=== PATIENT | male | born 1985 | race Caucasian/White ===

== ENCOUNTER 2024-06-04 18:01 | Emergency (ER) | payer OTHER, SELFPAY ==
[2024-06-04] VITALS (21 sets, daily range): BP systolic 118–178; BP diastolic 89–125
--- NOTE | 2024-06-04 18:16 | ED.GENMED ---
History of Present Illness
<Afia Reyes PA-C - Last Filed: 06/04/24 22:08>
General
Chief Complaint: Musculo-Skeletal Complaint
Source: patient
Exam Limitations: none
Time Seen by Provider: 06/04/24 18:14
Nursing documentation reviewed up to this point in time: agreed with
History of Present Illness
History of Present Illness:
38-year-old male presents emergency department today with left ankle pain following a fall. 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
subsequently slipped and grabbed onto the handrail, hopping over a few steps and landing on his left ankle. Patient states that he did not fall down the step or hit his head. He does not recall if he twisted his ankle or had an inversion injury.
Patient denies any neck pain, any headache, any chest wall pain, any abdominal pain. Patient denies any left ankle paresthesias.
Review of Systems
<Afia Reyes PA-C - Last Filed: 06/04/24 22:08>
Review of Systems
All Other Systems: ROS reviewed and negative except as documented in HPI and ROS
Phy Exam
<Afia Reyes PA-C - Last Filed: 06/04/24 22:08>
Physical Exam
Physical Exam:
General: Patient is well appearing and in no acute distress; non-toxic
Skin: Warm and dry, no rashes or lesions
Head: Normocephalic, atraumatic
Eyes: Sclera non-icteric. EOMs intact.
Cardiac: Regular rate
Peripheral Vascular:
Pulm: Normal respiratory effort
Abdomen: No abdominal tenderness
Musculoskeletal:
Neuro: CN II-XII intact, no focal neurologic deficits.
Psychiatric: Appropriate mood and affect.
Course
<Afia Reyes PA-C - Last Filed: 06/04/24 22:08>
Orders/Labs/Results
Orders:
Orders
06/04/24 18:15
HYDROmorphone [Dilaudid] 0.5 mg IV NOW STA
06/04/24 18:45
CR Ankle - Left 2 Views Urgent
Comment:
Reason For Exam: left ankle pain/deformity
06/04/24 18:47
Fentanyl Citrate/Pf [Sublimaze] 100 mcg IV NOW STA
06/04/24 19:25
CR Ankle - Left 2 Views Urgent
Comment:
Reason For Exam: post reduction
06/04/24 19:37
Propofol [Diprivan] 20 ml .ROUTE .STK-MED
06/04/24 20:29
Propofol [Diprivan] 20 ml .ROUTE .STK-MED
06/04/24 20:52
CR Ankle - Left 2 Views Urgent
Comment:
Reason For Exam: post reduction
06/04/24 21:42
Oxycodone/Acetaminophen [Percocet 5/325] 1 tablet PO NOW STA
Vital Signs
Initial and Last Documented VS:
Initial Vital Signs
Temp Pulse Resp Pulse Ox
97.9 F 100 16 98
06/04/24 18:03 06/04/24 18:03 06/04/24 18:03 06/04/24 18:03
Last Documented Vital Signs
Temp Pulse Resp BP Pulse Ox
98.0 F 95 16 177/108 98
06/04/24 21:29 06/04/24 21:45 06/04/24 21:45 06/04/24 21:30 06/04/24 21:30
<Rober Vyas MD - Last Filed: 06/04/24 22:02>
Orders/Labs/Results
Orders:
Orders
06/04/24 18:15
HYDROmorphone [Dilaudid] 0.5 mg IV NOW STA
06/04/24 18:45
CR Ankle - Left 2 Views Urgent
Comment:
Reason For Exam: left ankle pain/deformity
06/04/24 18:47
Fentanyl Citrate/Pf [Sublimaze] 100 mcg IV NOW STA
06/04/24 19:25
CR Ankle - Left 2 Views Urgent
Comment:
Reason For Exam: post reduction
06/04/24 19:37
Propofol [Diprivan] 20 ml .ROUTE .STK-MED
06/04/24 20:29
Propofol [Diprivan] 20 ml .ROUTE .STK-MED
06/04/24 20:52
CR Ankle - Left 2 Views Urgent
Comment:
Reason For Exam: post reduction
06/04/24 21:42
Oxycodone/Acetaminophen [Percocet 5/325] 1 tablet PO NOW STA
Vital Signs
Initial and Last Documented VS:
Initial Vital Signs
Temp Pulse Resp Pulse Ox
97.9 F 100 16 98
06/04/24 18:03 06/04/24 18:03 06/04/24 18:03 06/04/24 18:03
Last Documented Vital Signs
Temp Pulse Resp BP Pulse Ox
98.0 F 95 16 177/108 98
06/04/24 21:29 06/04/24 21:45 06/04/24 21:45 06/04/24 21:30 06/04/24 21:30
Procedures
[place];Afia Reyes PA-C - Last Filed: 06/04/24 22:08>
Moderate Sedation
Chart and allergies reviewed: Yes
Consent for anesthesia obtained: Yes
Time out completed (validating right patient & procedure): Yes
Moderate Sedation Start Time(when first medication is given): 20:47
History of difficult intubation: No
Airway free of obstruction: Yes
Patient has a gag reflex: Yes
Patient is able to open mouth: Yes
Patient has no dentures: Yes
Patient has no loose teeth: Yes
Medication administered by Provider during Moderate Sedation: IV Propofol (mg) (130)
Total dose administered: 130
Time drug administered: 20:47
Moderate Sedation Procedure End Time: 20:59
Comment: attempt unsuccessful, second conscious sedation attempt performed by ortho
Joint/Fracture Reduction
Left Ankle:
Indication for procedure:: acute fracture and dislocation
Procedure completed by: Dr. Vyas
Consent form signed: Yes
Anesthesia/sedation: 1% Lidocaine w/ Epi
Injury was: closed
Post reduction exam: stable
Capillary Refill: normal
Normal distal neurovascular exam?: Yes
<Afia Reyes PA-C - Last Filed: 06/04/24 22:08>
MDM/Problems Addressed
Differential Diagnosis Includes:
See below
MDM/Problems Addressed:
NUMBER AND COMPLEXITY OF PROBLEMS ADDRESSED AT THE ENCOUNTER
� Chronic conditions affecting care: PTSD
� Differential Diagnosis includes: Trimalleolar fracture, distal fibula fracture, ankle sprain, ankle dislocation
AMOUNT AND/OR COMPLEXITY OF DATA TO BE REVIEWED AND ANALYZED
� I performed an independent evaluation of and my interpretation is:
X-rays: Initial x-ray reveals trimalleolar fracture with posterior dislocation of the talus
Other:
� Review of other/old records: No previous ER physician documentation to review
RISK OF COMPLICATIONS AND/OR MORBIDITY OR MORTALITY OF PATIENT MANAGEMENT
� Discussion with other providers: ER attending
� Escalation of care including admission/observation vs risk of discharge considered:
38-year-old male presents emergency department today with concerns of left ankle pain following a slip and fall. Patient endured an x-ray which feels a trimalleolar fracture. Patient's pain was treated with fentanyl and Dilaudid here in the
emergency department. There is dislocation noted on x-ray. First we attempted reduction with a hematoma block. This was unsuccessful. We then sedated patient with conscious sedation with propofol, and multiple providers including myself
attempted reduction, this was again unsuccessful. Orthopedist on-call made aware, reports emergency department to perform procedure. Procedural sedation again was performed with successful reduction. Patient placed in fiberglass splint, return
precautions discussed, patient will follow-up with orthopedist next week. Patient stable for discharge.
<Afia Reyes PA-C - Last Filed: 06/04/24 22:08>
*Critical Care Note
Total Time (30-74mins, 75-104mins- exclusive of procedures): Not Applicable
ED Attending Note
<Afia Reyse PA-C - Last Filed: 06/04/24 22:08>
-
Portions of this chart may have been created with voice recognition software.� Occasional wrong word or��sound alike� substitutions may have occurred due to the inherent limitations of voice recognition software.
<Rober Vyas MD - Last Filed: 06/04/24 22:02>
ED Attending Note
Patient seen and examined by attending physician: Yes
ED Attending Note:
Patient presents to ED secondary to left ankle injury when he lost balance and fell down the steps at home this afternoon. Patient denies any other injuries from the fall. Patient presents with obvious deformity to his left ankle. Patient was
given fentanyl and brought to the hospital by paramedics with mild relief in pain.
Physical Exam
General: moderate painful distress, not acutely ill. afebrile
Head: nc/at. eomi
Neck: supple. no meningeal signs.
Neuro: alert and oriented. no focal neurological deficits
Skin: no rash
Psychiatric: well kept. interactive and cooperative
Extremities: left ankle with obvious deformity with tenderness to palpation. dorsalis pedis pulse palpable.
History, exam, and x-ray consistent with significant comminuted ankle fracture along with dislocation.
After receiving procedural consent, hematoma block initially applied and reduction attempted, without success. Second reduction attempt made after conscious sedation via propofol, once again without success.
Patient evaluated in ED by Dr. Alvarez, orthopedic surgery. After conscious sedation via propofol, ankle dislocation successfully reduced at bedside. Splint applied afterwards.
Post reduction confirmed successful reduction. Pt already has crutches at home, which he will utilize, along with outpatient f/u with . Pt otherwise is neurovascularly intact at time of discharge.
Discharge Plan
Departure
Patient Disposition: Home (Routine Discharge)
Date of Disposition: 06/04/24
Time of Disposition: 21:55
Patient with high blood pressure during this ER visit?: Yes
Condition: Good
Discharge Problem:
Ankle dislocation, Closed trimalleolar fracture
Instructions: Ankle fracture, How to Use Crutches, BLOOD PRESSURE
Prescriptions:
New
oxycodone-acetaminophen [Percocet] 5-325 mg Tablet
1 tab PO Q6HPRN PRN (Reason: pain) Qty: 12 0RF
Referrals:
Delfin Alvarez MD [Active] - Call in 1-3 days for appt
NONE,* [Family Provider] -
Activity Restrictions/Additional Instructions:
For pain and to help decrease inflammation, you can take ibuprofen 400 mg every 4 hours. You have breakthrough pain, you can take 1 Percocet tablet every 6 hours as needed. Please call Dr. Alvarez's office tomorrow to schedule an appointment.
Please keep the splint dry.
PLEASE RETURN TO EMERGENCY DEPARTMENT SHOULD YOU EXPERIENCE LOSS OF SENSATION IN YOUR LOWER EXTREMITY, INTRACTABLE PAIN, NUMBNESS OR TINGLING, ANY OTHER SIGNS OR SYMPTOMS, WORRISOME TO YOU
Interventions
Interventions:
*Risk Screen - Suicide Last Done: 06/04/24 18:03
*General Assessment Last Done: 06/04/24 18:03
*Neglect/Abuse Screening Last Done: 06/04/24 18:03
*ED COVID-19 Vaccine History Last Done: 06/04/24 18:03
ED-Musculoskeletal Assessment Last Done: 06/04/24 18:12
Discharge Date and Time
Print Language: RWANDAN
[2024-06-04] MEDS: DILAUDID 0.5 MG IV (18:18)
[2024-06-04] MEDS: SUBLIMAZE 100 MCG IV (18:51)
--- NOTE | 2024-06-04 21:05 | CON.ORTHO ---
Consultation
-
Date/Time Consultation Requested: [id number] 20:01
Date/Time Consultation Performed: [id number] 20:42
Requesting Provider: MD Asael
Performing Provider: Delfin Alvarez MD
Reason for Consultation: left ankle fracture dislocation
Consultation - Orthopedics
History
Mr Adams is a 38M who sustained a mechanical fall down a flight of stairs at home. He noted immediate pain and deformity in the left ankle, and presented to the hospital where XR determined he had a fracture dislocation of the left ankle. The ED
attempted closed reduction but was unsuccessful. Orthopaedics was consulted to assist in reduction. Patient denies numbness and tingling in his LLE, denies prior injury or surgery.
Physical exam:
swelling about ankle with externally rotated foot, no ecchymosis or open wounds
ankle TTP medial and lateral malleoli
ankle ROM deferred
5/5 EHL/FHL
sensation intact in all dermatomes
palpable DP/PT pulses, brisk capillary refill
3 view XR of the left ankle ordered in the ED and interpreted by me independently significant for comminuted fractures of both malleloli with posterior malleolar fracture and posterior dislocation of ankle
Allergies / Home Medications
Allergy/AdvReac Type Severity Reaction Status Date / Time
No Known Allergies Allergy Unverified 06/04/24 18:13
Vital Signs / Lab Results
Temp Pulse Resp BP Pulse Ox
98.0 F 96 16 177/118 97
06/04/24 20:59 06/04/24 20:59 06/04/24 20:59 06/04/24 20:54 06/04/24 20:59
Assessment / Plan
Patient is a 38M with left ankle trimalleolar fracture dislocation
He was closed reduced by myself under conscious sedation with administration of 130mg propofol. Reduction was confirmed via XRay. Due to swelling, the skin is not amenable to fixation of his injury. He should schedule an follow up appointment with
me as an outpatient for a skin check; when the swelling has resolved we will schedule him for open reduction and internal fixation of the left ankle.
[2024-06-04] MEDS: PERCOCET 5/325 1 TABLET PO (22:03)
== END 2024-06-04 22:15 | disposition home or self-care (01) ==
LOC: EMR 18:01
PROVIDERS: EMERGENCY PHYSICIAN Emergency Medicine; OTHER PHYSICIAN Student in an Organized Health Care Education/Training Program
DX: S82.852A Displaced trimalleolar fracture of left lower leg, initial encounter for closed fracture (principal); S93.05XA Dislocation of left ankle joint, initial encounter; W10.9XXA Fall (on) (from) unspecified stairs and steps, initial encounter
CPT/HCPCS: 27818; 99285; 96374; 96375; 64450; 99152; 73600